=== PATIENT | female | born 1990 | race Two or more races ===

== ENCOUNTER 2017-05-01 11:13 | Emergency (ER) | payer BC ==
[~2017-05-01] VITALS: Ht 152.4 cm; Wt 54.4 kg
[~2017-05-01 11:13] MED LIST: PRILOSEC20 MG PO
== END 2017-05-01 11:31 | disposition home or self-care (01) ==
LOC: ED 11:13
DX: R50.9 Fever, unspecified (principal); R09.81 Nasal congestion; R05 Cough

== ENCOUNTER 2017-10-22 08:14 | Inpatient (IN) | payer OTHER ==
[~2017-10-22] VITALS: Ht 152.4 cm; Wt 69.0 kg
--- NOTE | 2017-11-06 08:32 | NUR ---
11/06/17 0832 Karen Garibay 0821-PATIENT ARRIVED TO PACU BACK TO ROOM 104 ON RA AWAKE DENIES PAIN OR NAUSEA. SR. RR EVEN. FUNDUS 1 ABOVE UMBILICUS FIRM TOWARDS RIGHT SIDE LIGHT RUBRA DRAINAGE ON JAMEL PAD. DENIES PAIN OR NAUSEA. DAD AT BEDSIDE. IVF INFUSING LR WITH 20 PITOCIN TO LEFT HAND. 0830-PATIENT HOLDING AND FEEDING BABY DENIES PAIN OR NAUSEA HOB SLIGHTLY ELEVATED
--- NOTE | 2017-11-08 10:48 | PR ---
[facility] [address] [facility] [place] [address] Signed PP Progress Notes Datetime Report Generated by CPN: 11/08/2017 10:47 SUBJECTIVE: [id number] Pain: Within normal limits Nausea/Vomiting: Denies Vital Signs: [id number] Vital Signs: Reviewed; Within Normal Limits Notable Details: PP Hgb/Hct = 10.1/31.0 EXAM: [id number] Abdomen/Uterus: Normal Lochia: Normal Extremities: Normal Incision: Normal IMPRESSION/PLAN/PROCEDURES: [id number] Impression: Normal progression Plan: Discharge Procedures: None Progress Notes: Doing well, without complaint. Ready to go home. Signing Physician: Tegan Chavez MD Copies: ~ *Electronically Signed* 11/08/17 1047 TEGAN CHAVEZ MD PATIENT NAME: ARGENTINA MELGOZA PROGRESS NOTE DATE OF : 90 PHYSICIAN: TEGAN CHAVEZ MD RPT #: [id number] REPORT IS CONFIDENTIAL AND NOT TO BE RELEASED WITHOUT AUTHORIZATION
--- NOTE | 2017-11-08 10:51 | OR ---
[facility] [address] [place], [place] [address] Signed DATE OF OPERATION: 11/06/2017 SURGEON: Abraham Landon MD Patient of Dr. Landon. PREOPERATIVE DIAGNOSIS: Term , previous section. POSTOPERATIVE DIAGNOSES: Term , previous section and thin lower uterine segment. PROCEDURE: Repeat low transverse segment section, delivery of live male . METALLURGICAL LAB TECHNICIAN: Andrew Maldonado DO. ANESTHESIA: Spinal. ESTIMATED BLOOD LOSS: 500 mL. COMPLICATIONS: None. DRAINS: Muller to bladder. FINDINGS: Live male , 's 9 and 9, weight 8 pounds 0 ounces. Uterus had a very thin and slightly bulging lower uterine segment. The bladder was also slightly elevated towards the lower segment. There were no adhesions present. Both tubes and ovaries were normal. DESCRIPTION OF PROCEDURE: The patient was brought to the operating room, placed in supine position. After adequate spinal anesthesia was obtained, she was prepped and draped in usual sterile fashion. A Pfannenstiel skin incision was made through previous surgical scar using a Electronically Signed By: ABRAHAM LANDON MD 11/08/17 1051 PATIENT NAME: ARGENTINA MELGOZA OPERATIVE REPORT DATE OF : [birth year] REPORT #: [id number] PHYSICIAN: ABRAHAM LANDON MD PCP: NO PRIMARY CARE PHYSICIAN REPORT IS CONFIDENTIAL AND NOT TO BE RELEASED WITHOUT AUTHORIZATION [facility] [address] [place], [place] [address] Signed scalpel. Subcutaneous tissue was dissected with scalpel and Bovie. Fascia was nicked with scalpel and extended in transverse fashion using curved scissors. The underlying abdominal musculature was bluntly and sharply from the fascia above and below the incision. The abdominal musculature was bluntly and sharply along the midline. The peritoneum was grasped with hemostats, elevated and nicked with Metzenbaum scissors, extended in vertical fashion using Metzenbaum scissors. The Xander self-retaining retractor was inserted into the incision and tightened in place. The above findings were noted. The lower uterine segment was carefully nicked with the scalpel at the top of the thinned area and clear fluid came from the incision. The incision was extended in a transverse fashion using finger dissection. The infant was noted to be in vertex KENY presentation. The 's head was easily delivered from the incision. There was a nuchal cord around the neck. Once this was removed, the was then easily removed. The cord was doubly clamped and cut and the infant was passed off the table in good condition to awaiting nurse. A segment of cord was collected with Cookie clamps and then the uterus manually removed. The uterine cavity was explored to lap pad to remove any retained membranes. An angled stitch of 0 Monocryl was placed at one end of the incision and running interlocking stitch of 0 Monocryl starting at the other end was used to close the incision. Care was taken in the midline to reinforce the thinned area, but to stay away from the elevated bladder. A 2nd running stitch of 0 Monocryl was used to imbricate the 1st layer and again care was taken to attempt to thicken the thinned out area, but not to go deep in order to avoid the bladder. The bladder did appear to be well below the area of dissection when finished. The entire pelvis was irrigated, suctioned and examined, and noted to have good hemostasis. The Xander retractor was removed and the sheet of ACell was placed over the lower uterine segment to help with healing. The anterior wall peritoneum was then closed using running stitch of 2-0 Vicryl suture. The abdominal musculature was reapproximated using interrupted stitches of 0 Vicryl suture. The abdominal wall incision was irrigated, suctioned, examined, and any bleeding spots were cauterized with the Bovie. Powdered ACell was sprinkled on the abdominal musculature to help with healing and then the fascia was closed using two running stitches of 0 Vicryl suture meeting in the midline. Subcutaneous tissue was irrigated, suctioned, examined, any bleeding spots cauterized with the Bovie. The remaining powdered ACell sprinkled on subcutaneous layer, which was then closed using interrupted stitches of 3-0 Vicryl suture. Skin was reapproximated using skin clips. The patient tolerated the procedure well, went to recovery room in good condition. Sponge, needle, and instrument count are correct at the end of the procedure. Abraham Landon MD Electronically Signed By: ABRAHAM LANDON MD 11/08/17 1051 PATIENT NAME: ARGENTINA MELGOZA OPERATIVE REPORT DATE OF : [birth year] REPORT #: [id number] PHYSICIAN: ABRAHAM LANDON MD PCP: NO PRIMARY CARE PHYSICIAN REPORT IS CONFIDENTIAL AND NOT TO BE RELEASED WITHOUT AUTHORIZATION [address] [address] Signed [facility] /[id number] Copies: ~ Electronically Signed By: ABRAHAM LANDON MD 11/08/17 1051 PATIENT NAME: ARGENTINA MELGOZA OPERATIVE REPORT DATE OF : [birth year] REPORT #: [id number] PHYSICIAN: ABRAHAM LANDON MD PCP: NO PRIMARY CARE PHYSICIAN REPORT IS CONFIDENTIAL AND NOT TO BE RELEASED WITHOUT AUTHORIZATION
== END 2017-11-08 14:10 | disposition home or self-care (01) | DRG 766 ==
LOC: FBC 11-06 04:42
PROVIDERS: ADMIT General Practice
PROC: 10D00Z1 Extraction of Products of Conception, Low, Open Approach (ICD-10-PCS; principal; 2017-11-06 06:45)
DX: O34.211 Maternal care for low transverse scar from previous cesarean delivery (principal); N85.8 Other specified noninflammatory disorders of uterus; O69.81X0 Labor and delivery complicated by cord around neck, without compression, not applicable or unspecified; O75.82 Onset (spontaneous) of labor after 37 completed weeks of gestation but before 39 completed weeks gestation, with delivery by (planned) cesarean section; Z3A.39 39 weeks gestation of pregnancy; Z37.0 Single live birth
CPT/HCPCS: 01961; 36415; 85027; C1763; J0690; J1885; J2274; J2370; J2405; J2590; J2765; J7120

== ENCOUNTER 2018-03-22 17:45 | Emergency (ER) | payer OTHER ==
[~2018-03-22] VITALS: Ht 152.4 cm; Wt 53.1 kg
== END 2018-03-22 18:55 | disposition home or self-care (01) ==
LOC: ED 17:45
DX: K62.5 Hemorrhage of anus and rectum (principal); J45.909 Unspecified asthma, uncomplicated
CPT/HCPCS: 85025; 99283